=== PATIENT | female | born 1990 | race Caucasian/White ===

== ENCOUNTER 2017-01-14 14:00 | Inpatient (IN) | payer OTHER ==
--- NOTE | ~2017-01-14 | PA ---
Unit #: [id number] #: [id number] Patient: GIL ABREU [id number] [place] [address] [id number] MR#: [id number] NAME: GIL ABREU. ROOM: 32 Age: 26 Sex: F Admission Date: 01/14/2017 : 1990 Date of Assessment: Attending Physician: Riki Dickerson M.D. Admitting Physician: Riki Dickerson M.D. Primary Care Physician: Madina Us M.D. PSYCHIATRIC ASSESSMENT DATE OF ASSESSMENT 01/15/2017. INFORMANTS Patient, reliable; OLOP, reliable. CHIEF COMPLAINT Suicidal ideation. HISTORY OF PRESENT ILLNESS Lita Abreu is a 26-year-old woman who reports increasing psychosocial stress and feels like she is in a "downward spiral." She reported family members are stressing her out and she recently had financial and automotive difficulties. She admits to smoking some cannabis to deal with her mood and reports ongoing suicidal ideation. She was unable to contract for safety and was admitted for stabilization. PAST PSYCHIATRIC HISTORY The patient was treated previously in [facility] for therapy as an adolescent. She has no previous or current psychiatric medications. FAMILY PSYCHIATRIC HISTORY There is an extensive family history of depression and alcohol abuse. SOCIAL HISTORY The patient denied a history of childhood abuse or neglect. She has been , but is from her . Her children and roommates were removed from her custody by Child Protective Services due to accusations by a caregiver. She is a high school graduate with some college. She has been unemployed for 2 months. PAST MEDICAL HISTORY No chronic medical problems. MEDICATIONS None currently. ALLERGIES No known medication allergies. SUBSTANCE ABUSE HISTORY The patient admits to smoking cannabis occasionally, but otherwise denies chemical use or dependence. Unit #: [id number] #: [id number] Patient: GIL ABREU MENTAL STATUS EXAMINATION The patient presented as a neatly dressed and groomed woman, who appeared her stated age. She was cooperative with the examination. Her speech was spontaneous and easily understood. Musculoskeletal examination was calm. Her mood was depressed with a congruent affect. She was alert and fully oriented. Her memory and concentration were intact. Her thought processes were logical with no active psychosis. She reported some suicidal ideation, but contracted for safety in the hospital. Insight and judgment were intact. Fund of knowledge and abstraction were intact. ASSETS AND LIABILITIES The patient knows local resources and presents voluntarily for treatment. Liabilities include lack of current treatment plan and recent CPS involvement. ADMITTING DIAGNOSES AXIS I: Major depression, F33.2. AXIS II: No diagnosis. AXIS III: None acute. AXIS IV: AXIS V: PSYCHIATRIC PLAN The patient was admitted and placed on suicide precautions. Celexa 20 mg daily was added for treatment of depression with trazodone as needed for insomnia. She will enroll in psychotherapy groups and activities. Physical examination and laboratory studies will be ordered and reviewed. TREATMENT GOALS Resolution of SI, improvement in insight, and improvement in coping skills. DISCHARGE PLAN Follow up with [facility]. ESTIMATED LENGTH OF STAY 5 days. Dictated by... Riki Dickerson M.D. ADAMA/gaetano TD: 01/17/2017 05:50 JOB #: [id number] Unit #: [id number] #: [id number] Patient: GIL ABREU PSYCHIATRIC ASSESSMENT Page 1 of 1 X Riki Dickerson MD X PSYCHIATRIC ASSESSMENT
--- NOTE | ~2017-01-14 | DS ---
Unit #: [id number] #: [id number] Patient: JENNIFER ABREU [id number] [place] [address] [id number] MR#: [id number] NAME: JENNIFER ABREU. ROOM: P132 Age: 26 Sex: F Admission Date: 01/14/2017 : 1990 Discharge Date: 01/16/2017 Attending Physician: Riki Dickerson M.D. Primary Care Physician: Madina Us M.D. DISCHARGE SUMMARY REASON FOR ADMISSION Jennifer is a 26-year-old woman with a previous history of depression, treated by psychotherapy. She reports increasing social stress including CPS involvement and loss of employment. She had increasingly hopeless and helpless, and felt suicidal. She was admitted for stabilization. DIAGNOSTIC STUDIES LABORATORY RESULTS: Beta-hCG was negative. Other laboratory studies were all within normal limits. HOSPITAL COURSE Jennifer was admitted and placed on suicide precautions. Celexa 20 mg daily for depression and trazodone 50 mg at bedtime were initiated for treatment of depression and insomnia. She enrolled in psychotherapy groups and activities and participated appropriately. On the date of discharge, she had a bright affect, good mood, and no further suicidal ideation, intent, or plan. DISCHARGE DIAGNOSES AXIS I: Major depression. AXIS II: No diagnosis. AXIS III: None acute. AXIS IV: AXIS V: DISCHARGE INSTRUCTIONS Follow up with [facility]. DISCHARGE MEDICATIONS Celexa 20 mg daily for depression and trazodone 50 mg at bedtime as needed for insomnia. CONDITION AT DISCHARGE Improved. PROGNOSIS Good. DIET AND ACTIVITY Ad celeste. Unit #: [id number] #: [id number] Patient: JENNIFER ABREU Dictated by... Riki Dickerson M.D. [facility]/kalil TD: 01/17/2017 03:48 JOB #: [id number] DISCHARGE SUMMARY Page 1 of 1 X Riki Dickerson MD X DISCHARGE SUMMARY
--- NOTE | ~2017-01-14 | HP ---
Unit #: [id number] #: [id number] Patient: JENNIFER ABREU [id number] [place] [address] [id number] MR#: [id number] NAME: JENNIFER ABREU. ROOM: P132 Age: 26 Sex: F Admission Date: 01/14/2017 : 1990 Attending Physician: Riki Dickerson M.D. Admitting Physician: Riki Dickerson M.D. Primary Care Physician: Madina Us M.D. HISTORY AND PHYSICAL HISTORY OF PRESENT ILLNESS Jennifer is a 26 year old admitted to [address] [place] [address] with depression and increased anxiety and after verbalizing wanting to hurt herself. PAST MEDICAL HISTORY Morbid obesity. PAST SURGICAL HISTORY T and A. ALLERGIES No known drug allergies. SOCIAL HISTORY She denies cigarettes, alcohol, but admits to using marijuana on occasion. FAMILY HISTORY Medically noncontributory. REVIEW OF SYSTEMS CONSTITUTIONAL: No fever or chills. HEENT: Denies any sore throat, ear pain or runny nose. CARDIOVASCULAR: Denies chest pain, irregular heart rhythm or palpitations. CHEST: Denies shortness of breath or cough. No hemoptysis. GASTROINTESTINAL: Denies nausea, vomiting, diarrhea or chronic constipation. ENDOCRINE: Denies history of increased thirst or urination. No recent significant weight loss or gain. GENITOURINARY: Denies dysuria, frequency, or hematuria. SKIN: Denies any rashes. HEMATOLOGIC: Denies history of increased bleeding or bruising. MUSCULOSKELETAL: Denies any hot, swollen joints. No generalized muscle pain. NEUROLOGIC: Denies problems with vision or speech. No frequent, severe headaches. No numbness, tingling or weakness in any extremities. Denies loss of bladder or bowel control. CURRENT MEDICATIONS 1. Milk of magnesia p.r.n. 2. Maalox p.r.n. 3. Tylenol p.r.n. PHYSICAL EXAMINATION Unit #: [id number] #: [id number] Patient: JENNIFER ABREU GENERAL: Alert, well nourished. No apparent distress. VITAL SIGNS: Blood pressure 134/96, heart rate 80, respirations 16, and temperature 98.6. WEIGHT: 226. HEIGHT: 5 feet 2 inches. SKIN: Warm and dry without rash or lesion. HEENT: Normocephalic. TMs not viewed. Oral and nasal passages clear. Conjunctivae clear. PERRLA. EOMs intact. NECK: Supple without lymphadenopathy or thyromegaly. HEART: Regular rate and rhythm without murmur. LUNGS: Clear. ABDOMEN: Soft, nontender. : Not done. EXTREMITIES: No evidence of cyanosis, clubbing or edema. Moves all without focal deficit. NEUROLOGICAL: Grossly within normal limits. Cranial Nerves: II: Visual coto are intact. III, IV AND : Extraocular movements are intact. Pupils are equal, round and reactive to light. V: Facial sensation is grossly normal. VII: Facial movements and expression are normal. VIII: Auditory acuity grossly intact. IX, X: Uvula is midline. Phonation is normal. XI: Patient shrugs shoulders and turns head normally. XII: Tongue protrudes in the midline. Sensory and Motor Function: Sensory and motor sensation is grossly normal. Motor: moves all extremities well. Coordination: Gait is normal. Deep Tendon Reflexes: Intact. IMPRESSION Psychiatric admission. RECOMMENDATIONS PSYCHIATRIC: Per psychiatrist. MEDICAL: I see no contraindication to participate in this facility's activities. MEDICAL PROGNOSIS Good. MEDICAL CONDITION Stable. Dictated by... Ai OlmsteadAMile-Bozena. for Remedios Rodas/donato TD: 01/15/2017 13:45 JOB #: [id number] Unit #: [id number] #: [id number] Patient: JENNIFER ABREU HISTORY AND PHYSICAL Page 1 of 1 X Zenaida Estrada HISTORY AND PHYSICAL
[~2017-01-14 14:00] MED LIST: ALBUTEROL17 GM INH; ALBUTEROL20 ml INH; AMOXICILLIN PO; AMOXICILLIN500 M1 PO; AMOXIL500 MG PO; AURALGAN EAR DR14 ML OT; BACTRIM DS TABL1 TA1 PO; BACTROBAN15 GM TOP; BENZONATATE PO; BROMPHED DM PO; CIPRO PO; CLEOCIN PO; IBUPROFEN PO; MOTRIN600 M1 PO; NAPROXEN PO; NO MEDICATIONS; OCELLA; PERCOCET5/325 PO; PHENERGAN25 M1 PO; PREDNISONE PO; PRENATAL1 TA1 PO; PYRIDIUM PO; TESSALON200 MG PO; TYLENOL #3 PO; VICODIN 5/1 TAB 5/50 PO; VOLTAREN75 MG PO; ZITHROMAX1 G/PKT PO; ZYRTEC-D TABLE1 EACH PO
[2017-01-15 10:12] LABS: BASOPHIL% 0.8 % (0-2.5); EOSINOPHIL# 0.1 X10e3 (0-0.7); EOSINOPHIL% 1.3 % (0.0-7.0); HEMATOCRIT 38.7 % (35.0-45.0); HEMOGLOBIN 12.9 gm/dL (12.0-16.0); LYMPHOCYTE# 1.8 X10e3 (1.0-3.5); LYMPHOCYTE% 35.3 % (17.0-45.0); MEAN CELL VOLUME 87.7 FL (83-96); MEAN CORPUSCULAR HEMOGLOBIN 29.2 PG (28-34); MEAN CORPUSCULAR HGB CONC 33.3 g/dL (30-36); MONOCYTE# 0.5 X10e3 (0-1.0); MONOCYTE% 9.5 % (3.0-12.0); NEUTROPHIL# 2.8 X10e3 (1.5-7.1); NEUTROPHIL% 53.1 % (40-75); PLATELET COUNT 259 X10e3 (140-420); RED BLOOD COUNT 4.41 X10e (3.90-5.30); RED CELL DISTRIBUTION WIDTH 13.4 % (11.0-15.5); WHITE BLOOD COUNT 5.2 X10e3 (4.0-10.5)
[2017-01-15 10:14] LABS: DIFF IND NO
[2017-01-15 10:54] LABS: THYROID STIMULATING HORMONE 0.93 uIU/ml (0.34-5.60)
[2017-01-15 10:59] LABS: ALBUMIN SERUM 3.9 g/dL (3.5-5.0); BILIRUBIN,TOTAL 1.2 mg/dL (0.2-2.0); CALCIUM SERUM 9.2 mg/dL (8.4-10.2); CREATININE SERUM 0.8 mg/dL (0.6-1.4); GLOM FILT RATE Estimated 101.8 mL/min (>60); POTASSIUM 4.6 mmol/L (3.5-5.1); PROTEIN TOTAL SERUM 6.8 g/dL (6.0-8.3)
[2017-01-15 11:01] LABS: FREE THYROXIN (T4) 1.05 ng/dL (0.58-1.64)
== END 2017-01-16 12:35 | disposition home or self-care (01) | DRG 885 ==
LOC: P1S 16:02
PROVIDERS: Psychiatry & Neurology Psychiatry
DX: F33.2 Major depressive disorder, recurrent severe without psychotic features (principal); R45.851 Suicidal ideations; E66.01 Morbid (severe) obesity due to excess calories; Z56.0 Unemployment, unspecified; E66.9 Obesity, unspecified
CPT/HCPCS: 80053; 84439; 84443; 84703; 85025